=== PATIENT | female | born 1990 | race American Indian/Alaskan Native ===

== ENCOUNTER 2017-05-11 15:35 | Emergency (ER) | payer MEDICAID ==
[2017-05-11 15:49] VITALS: TEMP 98.2; O2SAT 100; BMI 28.3
--- NOTE | 2017-05-11 16:28 | ED PDOC ---
Arrival/HPI - General Chief Complaint: Female Genitourinary Time Seen by Provider: 05/11/17 15:53 Historian: Patient - History of Present Illness Narrative History of Present Illness (Text): 05/11/17 16:24 26yr old female presents today with 2 week history of intermittent vaginal spotting and a 2 day history of vaginal bleeding with lower abdominal cramping. no fever/chills. no CP or SOB. no vomiting/diarrhea. denies dysuria. c/o urinary frequency. no dizziness or weakness. c/o crampy 3/10 lower abdominal pain across the entire lower abdomen. Time/Duration: Other ( 2weeks) Symptom Course: Intermittent Quality: Cramping Severity Level: 2 Past Medical History - Provider Review Nursing Documentation Reviewed: Yes - Travel History Have you recently traveled outside [place] w/in the past 3 mons?: No - Tetanus Immunization Tetanus Immunization: Unknown - Cardiac Hx Cardiac Disorders: No - Pulmonary Hx Respiratory Disorders: No - Neurological Hx Neurological Disorder: No - HEENT Hx HEENT Disorder: No - Renal Hx Renal Disorder: No - Endocrine/Metabolic Hx Endocrine Disorders: No - Hematological/Oncological Hx Blood Disorders: No - Integumentary Hx Dermatological Disorder: No - Musculoskeletal/Rheumatological Hx Musculoskeletal Disorders: No - Gastrointestinal Hx Gastrointestinal Disorders: No - Genitourinary/Gynecological Hx Genitourinary Disorders: No - Psychiatric Hx Psychophysiologic Disorder: No Hx Substance Use: No - Anesthesia Hx Anesthesia: No Hx Anesthesia Reactions: No Hx Malignant Hyperthermia: No Family/Social History - Physician Review Nursing Documentation Reviewed: Yes Family/Social History: Unknown Family HX Smoking Status: Never Smoked Hx Alcohol Use: No Hx Substance Use: No Allergies/Home Meds Allergies/Adverse Reactions: Allergies No Known Allergies Allergy (Verified 05/11/17 16:01) Review of Systems - Review of Systems Constitutional: absent: Fatigue, Fevers Respiratory: absent: SOB, Cough Cardiovascular: absent: Chest Pain, Palpitations Gastrointestinal: Abdominal Pain. absent: Constipation, Diarrhea, Nausea, Vomiting Genitourinary Female: Frequency, Vaginal Bleeding. absent: Dysuria, Hematuria, Vaginal Discharge Musculoskeletal: absent: Arthralgias, Back Pain, Neck Pain Skin: absent: Rash, Pruritis Neurological: absent: Headache, Dizziness Psychiatric: absent: Anxiety, Depression Physical Exam Vital Signs Reviewed: Yes Vital Signs Temp Pulse Resp BP Pulse Ox 05/11/17 18:59 65 18 118/65 100 05/11/17 17:20 67 18 121/69 100 05/11/17 16:30 69 18 123/71 100 05/11/17 15:49 98.2 F 73 18 125/74 100 Temperature: Afebrile Blood Pressure: Normal Pulse: Regular Respiratory Rate: Normal Appearance: Positive for: Well-Appearing, Non-Toxic, Comfortable Pain Distress: None Mental Status: Positive for: Alert and Oriented X 3 - Systems Exam Head: Present: Atraumatic Mouth: Present: Moist Mucous Membranes Neck: Present: Normal Range of Motion Respiratory/Chest: Present: Clear to Auscultation, Good Air Exchange. No: Respiratory Distress, Accessory Muscle Use Cardiovascular: Present: Regular Rate and Rhythm, Normal S1, S2. No: Murmurs Abdomen: Present: Tenderness (+ minimal lower abdominal tenderness. ) Genitourinary/Pelvic Exam: Present: Normal External Genitalia, Vaginal Bleeding (small amout of pink discharge noted.), Cervical os Closed, Other (chaparoned by Renetta OLSEN EMT). No: Vaginal Discharge, Vaginal Lesions, Adenexal Tenderness, Adenexal Mass, Cervical Motion Tendernes, Odor Back: Present: Normal Inspection. No: CVA Tenderness Neurological: Present: GCS=15 Skin: Present: Warm Psychiatric: Present: Alert, Oriented x 3 Medical Decision Making ED Course and Treatment: 05/11/17 16:28 Patient is nontoxic well appearing in no distress. vital signs are stable. CBC: WNL CMP: WNL Beta hC TYPE AND SCREEN: B+ Urinalysis: WNL Ultrasound: Findings: The uterus measures approximately 10.9 x 6.1 x 7.9 cm. Anteverted. Cervix length measures approximately 4.3 cm. There is a single intrauterine fetus present. 5 mm yolk sac. The gestational sac measures 3.4 cm and is compatible with a gestational age of 8 weeks 3 days. The crown-rump length measures 2.4 cm and is compatible with a gestational age of 9 weeks 0 days. There is heart motion which measured 172 BPM. The right ovary measures 2.4 x 1.4 x 2.0 cm. The left ovary measures 3.7 x 2.2 x 1.8 cm and contains 2.6 x 1.4 x 2.1 cm complex cyst, possibly corpus luteum. Blood flow was demonstrated to both ovaries. Impression: Live single intrauterine with estimated gestational age 8 weeks 3 days by gestational sac calculation and 9 weeks 0 days by crown-rump length calculation. heart rate 172 bpm. Advise an anomaly screen at 16-18 weeks gestational age 2.6 x 1.4 x 2.1 cm probable corpus luteal cyst. Discussed all the results the patient. advised f/u with the scientific photographer within the next 2 days. Pt states she his f/u appointment with scientific photographer in 6 days. advised immediate return if symptoms worsen, persist or if new symptoms develop. Patient verbalizes understanding of discharge instructions and need for immediate followup. Impression: threatened Tylenol every 4 hours as needed for pain Increase fluids Followup with the market garden worker within the next 2 days Return immediately if symptoms worsen persist or if new symptoms develop: High fevers, heavy bleeding, severe abdominal pain, vomiting, diarrhea, dizziness or weakness or any other concerning symptoms develop. Take vitamins daily. - Lab Interpretations Lab Results: 05/11/17 16:42 05/11/17 16:42 Lab Results 05/11/17 17:00: Blood Type Confirm B POSITIVE 05/11/17 16:42: WBC 7.4, RBC 3.60, Hgb 11.3 L, Hct 32.2 L, MCV 89.4, MCH 31.4, MCHC 35.1, RDW 11.9, Plt Count 218, MPV 10.3, Gran % 69.9 H, Lymph % (Auto) 22.3 , [place] % (Auto) 6.9 H, Eos % (Auto) 0.8 L, Baso % (Auto) 0.1, Gran # 5.13, Lymph # 1.6, [place] # 0.5, Eos # 0.1, Baso # 0.01 05/11/17 16:42: Blood Type B POSITIVE, Antibody Screen Negative, BBK History Checked No verified bt 05/11/17 16:42: Beta HCG, Quant 86538.00 H 05/11/17 16:42: Sodium 135, Potassium 3.8, Chloride 101, Carbon Dioxide 24, Anion Gap 14, BUN 11, Creatinine 0.5, Est GFR ( Amer) > 60, Est GFR (Non- Af Amer) > 60, Random Glucose 85, Calcium 9.0, Total Bilirubin 0.3, AST 29, ALT 23, Alkaline Phosphatase 61, Total Protein 7.5, Albumin 4.0, Globulin 3.5, Albumin/Globulin Ratio 1.1 05/11/17 16:42: Urine Color Yellow, Urine Appearance Clear, Urine pH 7.0, Ur Specific [place] 1.020, Urine Protein Negative, Urine Glucose (UA) Negative, Urine Ketones Negative, Urine Blood Negative, Urine Nitrate Negative, Urine Bilirubin Negative, Urine Urobilinogen 0.2, Ur Leukocyte Esterase Negative - RAD Interpretation Radiology Orders: 05/11/17 16:06 OB TRANSVAGINAL [US] Stat Disposition/Present on Arrival - Present on Arrival Any Indicators Present on Arrival: No History of DVT/PE: No History of Uncontrolled Diabetes: No Urinary Catheter: No History of Decub. Ulcer: No History Surgical Site Infection Following: None - Disposition Have Diagnosis and Disposition been Completed?: Yes Diagnosis: Threatened Disposition: HOME/ ROUTINE Disposition Time: 18:29 Patient Plan: Discharge Patient Problems: Current Active Problems Problem Status Onset Threatened Acute Condition: GOOD Discharge Instructions (ExitCare): Threatened Miscarriage (ED) Additional Instructions: Tylenol every 4 hours as needed for pain Increase fluids Followup with the market garden worker within the next 2 days Return immediately if symptoms worsen persist or if new symptoms develop: High fevers, heavy bleeding, severe abdominal pain, vomiting, diarrhea, dizziness or weakness or any other concerning symptoms develop. Take vitamins daily. Prescriptions: Multivit/Folic Acid/I [ Plus] 1 tab PO DAILY #30 tab Referrals: Zora Dia MD [Primary Care Provider] - Follow up with primary Kathe Timmons MD [Staff Provider] - Follow up with primary Forms: WORK NOTE
[2017-05-11 17:08] LABS: ADD MANUAL DIFF? NO
[2017-05-11 17:15] LABS: BASO # 0.01 K/mm3 (0.0-2.0); BASO % 0.1 % (0.0-3.0); EOS # 0.1 (0.0-0.7); EOS % 0.8 % (1.5-5.0); GRAN # 5.13 (1.4-6.5); GRAN % 69.9 % (50.0-68.0); HEMATOCRIT 32.2 % (36.0-48.0); LYMPH # 1.6 (1.2-3.4); LYMPH % 22.3 % (22.0-35.0); MEAN CELL VOLUME 89.4 fL (80.0-105.0); MEAN CORPUSCULAR HEMOGLOBIN 31.4 pg (25.0-35.0); MEAN CORPUSCULAR HGB CONC 35.1 g/dl (31.0-37.0); MEAN PLATELET VOLUME 10.3 fl (7.0-11.0); MONO # 0.5 (0.1-0.6); MONO % 6.9 % (1.0-6.0); PLATELET COUNT 218 10^3/uL (120.0-450.0); RED CELL DISTRIBUTION WIDTH 11.9 % (11.5-14.5); WHITE BLOOD COUNT 7.4 10^3/ul (4.5-11.0)
[2017-05-11 17:25] LABS: URINE BILIRUBIN NEGATIVE (NEGATIVE); URINE BLOOD NEGATIVE (NEGATIVE); URINE GLUCOSE (UA) NEGATIVE (NEGATIVE); URINE KETONE NEGATIVE (NEGATIVE); URINE LEUKOCYTE ESTERASE NEGATIVE Leu/uL (NEGATIVE); URINE PROTEIN NEGATIVE mg/dL (<30 mg/dL); URINE UROBILINOGEN 0.2 E.U./dL (<1 E.U./dL)
[2017-05-11 17:26] LABS: ALB/GLOB RATIO 1.1 (1.1-1.8); ALKALINE PHOSPHATASE 61 U/L (38-133); ALT/SGPT 23 U/L (7-56); AST/SGOT 29 U/L (15-39); BILIRUBIN,TOTAL 0.3 mg/dL (0.2-1.3); BLOOD UREA NITROGEN 11 mg/dL (7-21); CARBON DIOXIDE 24 mmol/L (21-33); CHLORIDE 101 mmol/L (98-107); GFR AFRICAN-AMERICAN > 60; GLUCOSE,RANDOM 85 mg/dL (70-110); POTASSIUM 3.8 mmol/L (3.6-5.0); SODIUM 135 mmol/L (132-148); TOTAL PROTEIN 7.5 g/dL (5.8-8.3)
[2017-05-11 17:30] LABS: URINE APPEARANCE CLEAR (CLEAR); URINE COLOR YELLOW (YELLOW)
--- NOTE | 2017-05-11 18:12 | US ---
Indication: /bleeding/cramping Comparison: None available. Technique: Real-time transabdominal pelvic ultrasound was performed. In addition a transvaginal pelvic ultrasound was necessary to better depict pelvic anatomy. Findings: The uterus measures approximately 10.9 x 6.1 x 7.9 cm. Anteverted. Cervix length measures approximately 4.3 cm. There is a single intrauterine fetus present. 5 mm yolk sac. The gestational sac measures 3.4 cm and is compatible with a gestational age of 8 weeks 3 days. The crown-rump length measures 2.4 cm and is compatible with a gestational age of 9 weeks 0 days. There is heart motion which measured 172 BPM. The right ovary measures 2.4 x 1.4 x 2.0 cm. The left ovary measures 3.7 x 2.2 x 1.8 cm and contains 2.6 x 1.4 x 2.1 cm complex cyst, possibly corpus luteum. Blood flow was demonstrated to both ovaries. Impression: Live single intrauterine with estimated gestational age 8 weeks 3 days by gestational sac calculation and 9 weeks 0 days by crown-rump length calculation. heart rate 172 bpm. Advise an anomaly screen at 16-18 weeks gestational age 2.6 x 1.4 x 2.1 cm probable corpus luteal cyst.
[2017-05-11 18:59] VITALS: BP 118/65; PULSE 65; RESP 18
== END 2017-05-11 19:28 | disposition home or self-care (01) ==
LOC: ED 15:35 → MERGE 15:35 → ED 19:28
DX: O20.0 Threatened abortion (principal); Z3A.09 9 weeks gestation of pregnancy